=== PATIENT | male | born 1990 | race Caucasian/White ===

== ENCOUNTER 2019-06-21 08:26 | Emergency (ER) | payer OTHER ==
[~2019-06-21] VITALS: Ht 175.3 cm; Wt 74.8 kg
[2019-06-21] MEDS ORDERED: Naproxen375 MG PO (09:10)
[2019-06-21] MEDS ORDERED: Cyclobenzaprine5 MG PO (09:11)
== END 2019-06-21 10:09 | disposition home or self-care (01) ==
LOC: ER 08:26
DX: S16.1XXA Strain of muscle, fascia and tendon at neck level, initial encounter (principal); F17.200 Nicotine dependence, unspecified, uncomplicated; X58.XXXA Exposure to other specified factors, initial encounter
CPT/HCPCS: 96372; 99283-25; J1885; J3360